=== PATIENT | male | born 1980 | race African-American/Black ===

== ENCOUNTER 2019-07-27 13:36 | Inpatient (IN) | payer MEDICARE, MEDICAID ==
[~2019-07-27] VITALS: Ht 182.9 cm; Wt 73.8 kg
[~2019-07-27 13:36] MED LIST: NOCURR
[2019-07-27 14:46] LABS: EOSINOPHILS % (AUTO) 1.5 % (1.0-6.0); HEMATOCRIT 40.6 % (41-53); HEMOGLOBIN 13.5 g/dL (13.5-17.5); LYMPHOCYTES # (AUTO) 2.4 K/uL (1.0-4.8); LYMPHOCYTES % (AUTO) 25.6 % (22.0-44.0); MEAN CORPUSCULAR HEMOGLOBIN 28.1 pg (26.0-34.0); MEAN CORPUSCULAR HGB CONC 33.3 G/dL (31.0-37.0); MEAN CORPUSCULAR VOLUME 84 fL (80-100); MONOCYTES # (AUTO) 0.9 K/uL (0.1-1.0); MONOCYTES % (AUTO) 9.9 % (2.0-9.0); NEUTROPHILS # (AUTO) 5.8 K/uL (1.8-7.7); PLATELET COUNT (AUTO) 309 K/uL (150-450); RED BLOOD CELL COUNT(AUTO) 4.82 MIL/uL (4.50-5.90); RED CELL DISTRIBUTION WIDTH 14.2 % (11.5-14.5)
[2019-07-27] MEDS ORDERED: LURA40 PO (14:56)
[2019-07-27 14:59] LABS: ANION GAP 5 mmol/L (8-16); CALCIUM, TOTAL 9.3 mg/dL (8.8-10.5); CARBON DIOXIDE 32 mmol/L (22-29); CHLORIDE 101 mmol/L (98-107); CREATININE 0.85 mg/dL (0.60-1.30); GLOMERULAR FILTR. RATE CALC > 60 mL/min (>60); GLUCOSE,RANDOM 81 mg/dL (70-110); POTASSIUM 3.5 mmol/L (3.5-5.1); SODIUM SERUM 138 mmol/L (136-145); UREA NITROGEN, BLOOD 14 mg/dL (7-18)
[2019-07-27 15:07] LABS: ALANINE AMINOTRANSFERASE 29 U/L (12-78); ALKALINE PHOSPHATASE 71 U/L (46-116); ASPARTATE AMINOTRANSFERASE 20 U/L (15-37); BILIRUBIN,TOTAL 0.9 mg/dL (0.1-1.0); TOTAL PROTEIN, SERUM 7.5 g/dL (6.4-8.2)
[2019-07-27 16:17] LABS: AMPHET/METH SCREEN,URINE NEGATIVE (NEGATIVE); BARBITURATE SCREEN, URINE NEGATIVE (NEGATIVE); BENZODIAZEPINES SCREEN,URINE NEGATIVE (NEGATIVE); CANNABINOID SCREEN,URINE NEGATIVE (NEGATIVE); COCAINE SCREEN,URINE NEGATIVE (NEGATIVE); METHADONE SCREEN, URINE NEGATIVE (NEGATIVE); OPIATE SCREEN,URINE NEGATIVE (NEGATIVE); PHENCYCLIDINE SCREEN,URINE NEGATIVE (NEGATIVE)
[2019-07-27 18:51] LABS: SALICYLATE 0.6 mg/dL (2.8-20.0)
[2019-07-27 19:11] LABS: ACETAMINOPHEN < 2 mcg/mL (10-30)
[2019-07-27] MEDS ORDERED: ZOLPIDEM TARTRATE 10 MG TABLET PO PRN (19:15)
[2019-07-27] MEDS ORDERED: LORazepam 2 MG TABLET PO PRN (19:15)
[2019-07-27 22:12] VITALS: BP 124/81
[2019-07-28 09:59] VITALS: BP 135/96
[2019-07-28] MEDS ORDERED: LOPERAMIDE HCL 2 MG CAPSULE PO PRN (11:45)
[2019-07-28] MEDS ORDERED: ALBUTEROL SULFATE HFA 90 MCG/PUFF 8 GM INHALER IH PRN (11:45)
[2019-07-28] MEDS ORDERED: ACETAMINOPHEN 325 MG TABLET PO PRN (11:45)
[2019-07-28] MEDS ORDERED: MAGNESIUM HYDROXIDE SUSPENSION 30 ML UDCUP PO PRN (11:45)
[2019-07-28] MEDS ORDERED: ONDANSETRON HCL 4 MG TABLET PO PRN (11:45)
[2019-07-28] MEDS ORDERED: PETROLATUM,WHITE 28 GM JELLY TP PRN (11:45)
[2019-07-28] MEDS ORDERED: DOCUSATE SODIUM 100 MG CAPSULE PO PRN (11:45)
[2019-07-28] MEDS ORDERED: MAG HYDROX/AL HYDROX/SIMETH ES 30 ML SUSPENSION UDCUP PO PRN (11:45)
[2019-07-28] MEDS ORDERED: GuaiFENesin/D-METHORPHAN [SUGAR-FREE] 200-20MG/10 ML SYRUP UDCUP PO PRN (11:45)
[2019-07-28] MEDS ORDERED: NICOTINE 14 MG/24 HOUR PATCH TD PRN (11:45)
[2019-07-28] MEDS ORDERED: IBUPROFEN 400 MG TABLET PO PRN (11:45)
[2019-07-28] MEDS ORDERED: CloNIDine HCL 0.1 MG TABLET PO PRN (11:45)
[2019-07-28 18:13] VITALS: BP 128/75
[2019-07-29 10:51] VITALS: BP 137/89
[2019-07-29 17:12] VITALS: BP 117/74
[2019-07-30 03:23] VITALS: BP 131/85
[2019-07-30 08:44] VITALS: BP 142/91
[2019-07-30 16:47] VITALS: BP 125/70
[2019-07-30] MEDS: LURASIDONE HCL 40 MG TABLET PO SCH ×2 (17:08→17:30)
[2019-07-31 02:55] VITALS: BP 137/85
[2019-07-31 08:36] VITALS: BP 136/85
[2019-07-31 16:00] VITALS: BP 113/71
[2019-07-31] MEDS: LURASIDONE HCL 40 MG TABLET PO SCH (17:24)
[2019-08-01 02:35] VITALS: BP 124/78
[2019-08-01 08:00] VITALS: BP 139/85
[2019-08-01] MEDS: LURASIDONE HCL 40 MG TABLET PO SCH (17:10)
[2019-08-01 19:10] VITALS: BP 113/79
[2019-08-02 04:49] VITALS: BP 125/94
[2019-08-02 13:53] VITALS: BP 140/83
[2019-08-02 17:04] VITALS: BP 139/80
[2019-08-02] MEDS: LURASIDONE HCL 40 MG TABLET PO SCH (17:07)
[2019-08-03 00:10] VITALS: BP 117/67
[2019-08-03 10:33] VITALS: BP 154/85
[2019-08-03] MEDS: LURASIDONE HCL 40 MG TABLET PO SCH (16:42)
[2019-08-03 22:15] VITALS: BP 124/75
[2019-08-04 03:16] VITALS: BP 127/85
[2019-08-04] MEDS: CITALOPRAM HYDROBROMIDE 10 MG TABLET PO SCH (08:17)
[2019-08-04 10:02] VITALS: BP 128/82
[2019-08-04] MEDS: LURASIDONE HCL 40 MG TABLET PO SCH (16:30)
[2019-08-04 17:31] VITALS: BP 128/76
[2019-08-05 00:26] VITALS: BP 126/78
[2019-08-05] MEDS: CITALOPRAM HYDROBROMIDE 10 MG TABLET PO SCH (07:53)
[2019-08-05 12:57] VITALS: BP 129/74
[2019-08-05 16:59] VITALS: BP 136/77
[2019-08-05] MEDS: LURASIDONE HCL 40 MG TABLET PO SCH (17:10)
[2019-08-06 03:41] VITALS: BP 133/80
[2019-08-06] MEDS: CITALOPRAM HYDROBROMIDE 10 MG TABLET PO SCH (08:17)
[2019-08-06 12:35] VITALS: BP 132/98
[2019-08-06] MEDS: LURASIDONE HCL 40 MG TABLET PO SCH (17:14)
[2019-08-06 18:28] VITALS: BP 142/89
[2019-08-07 01:35] VITALS: BP 138/81
[2019-08-07] MEDS: CITALOPRAM HYDROBROMIDE 10 MG TABLET PO SCH (08:17)
[2019-08-07 09:45] VITALS: BP 138/70
[2019-08-07] MEDS: LURASIDONE HCL 40 MG TABLET PO SCH (16:29)
[2019-08-07 20:49] VITALS: BP 156/77
[2019-08-08] MEDS: HALOPERIDOL 5 MG TABLET PO PRN (02:35)
[2019-08-08 05:36] VITALS: BP 134/75
[2019-08-08] MEDS: CITALOPRAM HYDROBROMIDE 10 MG TABLET PO SCH (08:40)
[2019-08-08 09:27] VITALS: BP 134/77
[2019-08-08] MEDS: LURASIDONE HCL 40 MG TABLET PO SCH (16:50)
[2019-08-08 17:59] VITALS: BP 157/97
[2019-08-08] MEDS: TraZODone HCL 50 MG TABLET PO SCH (20:14)
[2019-08-09] MEDS: HALOPERIDOL 5 MG TABLET PO PRN (04:44)
[2019-08-09 04:46] VITALS: BP 150/67
[2019-08-09 08:00] VITALS: BP 142/79
[2019-08-09] MEDS: CITALOPRAM HYDROBROMIDE 10 MG TABLET PO SCH (09:24)
[2019-08-09 17:18] VITALS: BP 144/81
[2019-08-09] MEDS: LURASIDONE HCL 40 MG TABLET PO SCH (17:25)
[2019-08-09] MEDS: TraZODone HCL 50 MG TABLET PO SCH (20:14)
[2019-08-10 05:01] VITALS: BP 138/84
[2019-08-10 08:22] VITALS: BP 154/98
[2019-08-10] MEDS: CITALOPRAM HYDROBROMIDE 10 MG TABLET PO SCH (09:09)
[2019-08-10] MEDS: LURASIDONE HCL 40 MG TABLET PO SCH (16:42)
[2019-08-10 16:56] VITALS: BP 157/98
[2019-08-10] MEDS: HALOPERIDOL 5 MG TABLET PO PRN (17:47)
[2019-08-10] MEDS: TraZODone HCL 50 MG TABLET PO SCH (20:15)
[2019-08-11 02:33] VITALS: BP 141/80
[2019-08-11 08:00] VITALS: BP 133/76
[2019-08-11] MEDS: CITALOPRAM HYDROBROMIDE 10 MG TABLET PO SCH (08:12)
[2019-08-11] MEDS: HALOPERIDOL 5 MG TABLET PO PRN (08:57)
[2019-08-11] MEDS: LURASIDONE HCL 40 MG TABLET PO SCH (16:36)
[2019-08-11] MEDS: TraZODone HCL 50 MG TABLET PO SCH (20:11)
[2019-08-11 21:52] VITALS: BP 130/87
[2019-08-12 01:03] VITALS: BP 120/71
[2019-08-12] MEDS: HALOPERIDOL 5 MG TABLET PO PRN (04:10)
[2019-08-12] MEDS: CITALOPRAM HYDROBROMIDE 10 MG TABLET PO SCH (08:23)
[2019-08-12 10:08] VITALS: BP 149/96
[2019-08-12] MEDS: LURASIDONE HCL 40 MG TABLET PO SCH (16:36)
[2019-08-12 20:03] VITALS: BP 159/97
[2019-08-12] MEDS: TraZODone HCL 50 MG TABLET PO SCH (20:48)
[2019-08-13 02:33] VITALS: BP 140/89
[2019-08-13] MEDS: HALOPERIDOL 5 MG TABLET PO PRN (03:20)
[2019-08-13 08:00] VITALS: BP 129/83
[2019-08-13] MEDS: CITALOPRAM HYDROBROMIDE 10 MG TABLET PO SCH (08:13)
[2019-08-13] MEDS: LURASIDONE HCL 40 MG TABLET PO SCH (16:27)
[2019-08-13 17:00] VITALS: BP 135/93
[2019-08-13] MEDS: TraZODone HCL 50 MG TABLET PO SCH (20:10)
[2019-08-14 01:10] VITALS: BP 129/84
[2019-08-14] MEDS: HALOPERIDOL 5 MG TABLET PO PRN (01:10)
[2019-08-14] MEDS: CITALOPRAM HYDROBROMIDE 10 MG TABLET PO SCH (07:57)
[2019-08-14 08:43] VITALS: BP 157/98
[2019-08-14] MEDS: AmLODIPine BESYLATE 5 MG TABLET PO SCH (09:03)
[2019-08-14] MEDS: LURASIDONE HCL 40 MG TABLET PO SCH (17:08)
[2019-08-14 18:02] VITALS: BP 139/77
[2019-08-14] MEDS: TraZODone HCL 50 MG TABLET PO SCH (20:46)
[2019-08-15 04:44] VITALS: BP 134/88
[2019-08-15 08:00] VITALS: BP 138/90
[2019-08-15] MEDS: AmLODIPine BESYLATE 5 MG TABLET PO SCH (08:15)
[2019-08-15] MEDS: CITALOPRAM HYDROBROMIDE 10 MG TABLET PO SCH (08:16)
[2019-08-15] MEDS: HALOPERIDOL 5 MG TABLET PO PRN (14:03)
[2019-08-15] MEDS: LURASIDONE HCL 40 MG TABLET PO SCH (16:28)
[2019-08-15 19:14] VITALS: BP 139/83
[2019-08-15] MEDS: TraZODone HCL 50 MG TABLET PO SCH (20:29)
[2019-08-16 00:24] VITALS: BP 123/79
[2019-08-16 08:00] VITALS: BP 154/91
[2019-08-16] MEDS: CITALOPRAM HYDROBROMIDE 10 MG TABLET PO SCH (08:35)
[2019-08-16] MEDS: AmLODIPine BESYLATE 5 MG TABLET PO SCH (09:11)
[2019-08-16 16:34] VITALS: BP 132/88
[2019-08-16] MEDS: LURASIDONE HCL 40 MG TABLET PO SCH (17:11)
[2019-08-16] MEDS: HALOPERIDOL 5 MG TABLET PO PRN (17:11)
[2019-08-16] MEDS: TraZODone HCL 50 MG TABLET PO SCH (20:09)
[2019-08-17 00:13] VITALS: BP 119/88
[2019-08-17] MEDS: HALOPERIDOL 5 MG TABLET PO PRN (02:16)
[2019-08-17 08:00] VITALS: BP 141/91
[2019-08-17] MEDS: AmLODIPine BESYLATE 5 MG TABLET PO SCH (08:05)
[2019-08-17] MEDS: CITALOPRAM HYDROBROMIDE 10 MG TABLET PO SCH (08:05)
[2019-08-17 16:25] VITALS: BP 118/71
[2019-08-17] MEDS: LURASIDONE HCL 40 MG TABLET PO SCH (16:50)
[2019-08-17] MEDS: TraZODone HCL 100 MG TABLET PO SCH (20:41)
[2019-08-18] MEDS: HALOPERIDOL 5 MG TABLET PO PRN (02:25)
[2019-08-18 02:51] VITALS: BP 123/79
[2019-08-18] MEDS: AmLODIPine BESYLATE 5 MG TABLET PO SCH (08:53)
[2019-08-18] MEDS: CITALOPRAM HYDROBROMIDE 10 MG TABLET PO SCH (08:54)
[2019-08-18 09:07] VITALS: BP 137/75
[2019-08-18] MEDS: LURASIDONE HCL 40 MG TABLET PO SCH (16:17)
[2019-08-18 16:48] VITALS: BP 135/82
[2019-08-18] MEDS: TraZODone HCL 100 MG TABLET PO SCH (20:50)
[2019-08-19 01:26] VITALS: BP 133/69
[2019-08-19] MEDS: CITALOPRAM HYDROBROMIDE 10 MG TABLET PO SCH (08:22)
[2019-08-19] MEDS: AmLODIPine BESYLATE 5 MG TABLET PO SCH (08:22)
[2019-08-19 08:36] VITALS: BP 150/93
[2019-08-19] MEDS ORDERED: CITA10TA68 PO (10:21)
[2019-08-19] MEDS ORDERED: TRAZ-184 PO (10:21)
[2019-08-19] MEDS ORDERED: AMLO5TAB9 PO (10:21)
[2019-08-19] MEDS: TraZODone HCL 100 MG TABLET PO SCH (14:41)
[2019-08-19] MEDS: LURASIDONE HCL 40 MG TABLET PO SCH (14:41)
== END 2019-08-19 15:43 | disposition home or self-care (01) | DRG 885 ==
LOC: EMS 13:38 → 3EX 20:30
DX: F25.1 Schizoaffective disorder, depressive type (principal); F79 Unspecified intellectual disabilities; T50.902A Poisoning by unspecified drugs, medicaments and biological substances, intentional self-harm, initial encounter; Y92.89 Other specified places as the place of occurrence of the external cause; Z59.0 Homelessness; I10 Essential (primary) hypertension; Z91.5 Personal history of self-harm; Z79.899 Other long term (current) drug therapy; G47.00 Insomnia, unspecified; F17.210 Nicotine dependence, cigarettes, uncomplicated; F12.90 Cannabis use, unspecified, uncomplicated; F15.90 Other stimulant use, unspecified, uncomplicated; F19.10 Other psychoactive substance abuse, uncomplicated
CPT/HCPCS: 93005; G0378; G0480; G0481